=== PATIENT | female | born 1955 | race Caucasian/White ===

== ENCOUNTER 2017-04-27 07:36 | Day surgery (SDC) | payer MEDICARE ==
[~2017-04-27] VITALS: Ht 167.6 cm; Wt 94.1 kg
[~2017-04-27 07:36] MED LIST: PROM25SU8 PO; Z.0.NO CURRENT MEDS
[2017-04-27] MEDS ORDERED: IOHEXOL 350 MG/ML 50 ML BTL (for RAD DIAG) ONE (07:37)
[2017-04-27 08:18] VITALS: BP 136/68; PULSE 80; RESP 20; TEMP 98.3; O2SAT 100
[2017-04-27] MEDS ORDERED: TRAM50TA PO (08:44)
[2017-04-27] MEDS ORDERED: LEVO125T4 PO (08:44)
[2017-04-27] MEDS ORDERED: NEUR600T PO (08:44)
[2017-04-27] MEDS ORDERED: COUM6TAB PO (08:44)
[2017-04-27] MEDS ORDERED: SODIUM CHLORIDE 0.9% 1000 ML IV SCH (09:00)
[2017-04-27] MEDS ORDERED: MIDAZOLAM HCL 2 MG/2 ML VIAL ONE (10:36)
[2017-04-27 11:45] VITALS: BP 109/74; PULSE 68; RESP 18; TEMP 98.2; O2SAT 98
[2017-04-27 12:00] VITALS: BP 132/93; PULSE 77; RESP 18; O2SAT 98
[2017-04-27 12:30] VITALS: BP 117/64; PULSE 74; RESP 18; O2SAT 96
--- NOTE | 2017-04-27 13:31 | PD.RAD ---
Post Procedure Progress Note Pre Procedure Diagnosis: (1) Hypercoagulable state (2) GI bleed (3) DVT (deep venous thrombosis) Post Procedure Diagnosis: (1) Hypercoagulable state (2) GI bleed (3) DVT (deep venous thrombosis) Procedure Date: Apr 27, 2017 Supervising Radiologist: Hansel Guevara Proceduralist/Assist: Isatu Figueroa RT(R) Anesthesia: Local, Conscious Sedation Plan of Activity Patient to Unit: ROPU Patient Condition: Good See PACS Report for procedural detail/treatment Vascular-Venous Procedure Procedure 1 Procedure Site: Abdominal Procedure(s): Venogram Access Access Site(s): Right Jugular Vein Closure Site(s): Right manual pressure Findings: IVC filter identified in good position within occluded infrarenal IVC Hansel Guevara MD Apr 27, 2017 13:31
--- NOTE | 2017-04-27 14:08 | PD.RAD ---
Post Procedure Progress Note Pre Procedure Diagnosis: (1) Hypercoagulable state Post Procedure Diagnosis: (1) Hypercoagulable state Procedure Date: Apr 27, 2017 Supervising Radiologist: Felix Thomson Proceduralist/Assist: RT Natalie(R)() Anesthesia: Local Plan of Activity Patient to Unit: ROPU See PACS Report for procedural detail/treatment Central Venous Access Device Procedure 1 Right Peripheral Dialator Placement single lumen Felix Thomson MD Apr 27, 2017 14:08
--- NOTE | 2017-04-27 14:44 | RADRPT ---
EXAM DATE/TIME: 04/27/2017 09:31 [facility] COMPARISON: No previous studies available for comparison. INDICATIONS : Patient for IVC filter. Needs access. MEDICAL HISTORY : 1.Hx of DVT SURGICAL HISTORY : 1.tonsellectomy 2. cholecstectomy 3. hysteroectomy ENCOUNTER: Initial ACUITY: 4 - 6 days PAIN SCORE: 0/10 IMAGE SERIES: 0 ACCESS: Right brachial vein DEVICE(S): 1.) 3/4 [place]ian Dilator PROCEDURE : 1. Ultrasound guided venous access. The risks, benefits and alternatives to the procedure were explained and verbal and written consent w as obtained. The site was prepped in sterile fashion. Full sterile technique was used, including ca p, mask, sterile gloves and gown and a large sterile sheet. Hand hygiene and 2% chlorhexidine and/or betadine/alcohol prep was utilized per protocol for cutaneous antisepsis. The skin and subcutaneous tissues were infiltrated with local anesthetic solution. Sterile gel and sterile probe cover were u tilized for ultrasound guidance. With ultrasound guidance the prescribed vein was punctured for venous access. A 4 [place]ian dilator was placed and was flushed and locked with heparin. The patient tolerated procedure well and there were n o complications. CONCLUSION: Uncomplicated ultrasound guided venous access. Felix Thomson MD on April 27, 2017 at 14:42 Board Certified Radiologist. This report was verified electronically.
--- NOTE | 2017-04-27 15:31 | RADRPT ---
EXAM DATE/TIME: 04/27/2017 10:31 [facility] COMPARISON: No previous studies available for comparison. INDICATIONS : Patient with history of DVT. MEDICAL HISTORY : 1. DVT 2. bleeding ulcers 3. Kidney stones 4. basal cell ,melanoma on back SURGICAL HISTORY : 1. Jennifer 2. Tonsillectomy 3. Hysterectomy 4. Shoulder arthroscopy. ENCOUNTER: Initial ACUITY: 4 - 6 days PAIN SCORE: 0/10 FLUORO TIME: 4.7 minutes IMAGE SERIES: 4 ACCESS SITE: Right Internal jugular vein SEDATION TIME: 30 minutes CONTRAST: 1.) 65 cc Omnipaque (iohexol) 350 MEDICATION(S): 1.) 3 mg midazolam (Versed) IV 2.) 150 mcg fentanyl (Sublimaze) IV PROCEDURE : 1. Ultrasound-guided puncture of the right internal jugular vein. 2. Conscious sedation with continuous EKG and Oximetry monitoring. 3. nonselective inferior vena caval catheterization 4. inferior venacavography The risks, benefits and alternatives to the procedure were explained and verbal and written consent w as obtained. The site was prepped in sterile fashion. Full sterile technique was used, including ca p, mask, sterile gloves and gown and a large sterile sheet. Hand hygiene and 2% chlorhexidine and/or betadine/alcohol prep was utilized per protocol for cutaneous antisepsis. The skin and subcutaneous tissues were infiltrated with local anesthetic solution. Fluoroscopy performed over the abdomen revealed the presence of an inferior vena caval filter. With ultrasound and fluoroscopic guidance the right internal jugular vein was punctured and an angled Glidewire was directed into the inferior vena cava. A 4 [place] Berenstein catheter was advanced into the IVC. There was resistance to passage of the guidewire beyond the level of the upper aspect of th e IVC filter and the catheter was advanced. Gentle contrast injection was performed followed by subtr action venography. This appeared to reveal inferior vena caval occlusion at and below level of the fi lter. For better evaluation, a long 8 [place] sheath was inserted and manipulated into the IVC. The sh eath tip was positioned just above the filter. Intraventricular artery was performed in multiple proj ections with forceful injection to encourage reflux into the infrarenal IVC. The sheath was then removed. The puncture site was closed with manual pressure and hemostasis was obt ained. The patient tolerated the procedure well and there were no complications. Conscious sedation was performed with the prescribed dosages and duration as above in the presence of an independent trained radiology nurse to assist in the monitoring of the patient. EKG and oximetry remained stable throughout the procedure. FINDINGS: A retrievable inferior vena caval filter is noted. Filter is situated in the immediate infrarenal IVC . The IVC appears to be occluded at the level of the filter. CONCLUSION: An IVC filter is present. 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 Hansel Guevara MD on April 27, 2017 at 15:19 Board Certified Radiologist. This report was verified electronically.
== END 2017-04-27 13:45 | disposition home or self-care (01) ==
LOC: HROP 07:36 → HRIP 07:44 → HROP 13:45
DX: D68.59 Other primary thrombophilia (principal); I82.401 Acute embolism and thrombosis of unspecified deep veins of right lower extremity; K92.2 Gastrointestinal hemorrhage, unspecified
CPT/HCPCS: 36010; 36410; 75825; 76937; 99152; 99153; C1769; C1887; C1894; J2250; J3010; J7030; Q9967; C1880